=== PATIENT | female | born 1990 | race Caucasian/White ===

== ENCOUNTER 2016-08-02 20:22 | Emergency (ER) | payer OTHER ==
[~2016-08-02 20:22] MED LIST: ACETAMINOPHEN PO; ALBUTEROL17 GM INH; ALLEGRA PO; ALLEGRA180 MG PO; ALLERGY MED; ALPRAZOLAM PO; AMOXICILLIN PO; AMOXICILLIN875 MG PO; ANXIETY MED; ASPIR-TRIN325 MG PO; ASPIRIN81 M1 PO; ASPIRIN81 MG PO; AUGMENTIN PO; AZURETTE 28 DA1 EACH PO; BACTRIM DS TABL1 TA1 PO; BACTRIM DS TABL1 TA2 PO; BACTRIM DS TABL1 TAB PO; BIRTH CONTROL PILL PO; CHEWABLE ASPIRI81 MG PO; CIPRO PO; CIPRO250 M1 PO; CIPRO250 MG PO; CLARITIN PO; CLARITIN10 M1 PO; CLARITIN10 M2 PO; CLONIDINE; CLONIDINE HCL0.1 MG PO; DESYREL100 MG PO; DESYREL50 MG DOB; DIFLUCAN PO; DIFLUCAN100 MG PO; DITROPAN XL5 M1 PO; DOCUSATE SODIU100 MG PO; EFFEXOR PO; FLAGYL PO; FLEXERIL PO; FLONASE 0.05% N16 G1; FLONASE NASAL SPRAY; FOLIC ACID; FONDAPARIN2.5 MG/0.5 SQ; HYDROCODON-ACE1 EAC7 PO; HYOMAX-SL0.125 MG SL; IMITREX50 MG PO; KEFLEX500 M2 PO; KLONOPIN PO; KLONOPIN1 MG; KLONOPIN1 MG PO; KLONOPIN2 MG PO; LORTAB 7.5-5001 TAB PO; LYRICA; MACROBID100 M1 PO; MACROBID100 MG DOB; MACROBID100 MG PO; MEDROL DOSE PAK PO; MELATONIN; METRONIDAZOLE PO; MIRALAX17 G2 PO; MIRTAZAPINE30 MG PO; MORGIDOX100 MG PO; NEURONTIN300 MG PO; NILSTAT PO; NO MEDICATIONS; NORCO1 TAB 10/3; NORFLEX100 M1 DOB; ORUDIS75 M1 PO; PEN-VEE K PO; PEPCID AC20 M2 PO; PHENERGAN VC W120 M1 PO; PHENERGAN25 M1 PO; PHENERGAN25 MG PO; PRENATAL MULTI1 EACH PO; PRENATAL MULTIV1 TA1 PO; PRENATAL1 TA1 PO; PRILOSEC20 MG PO; PROAIR HFA8.5 GM INH; PROZAC PO; PYRIDIUM PO; PYRIDIUM100 MG PO; REQUIP4 MG PO; RISPERDAL0.5 M2 PO; SUDAFED PO; SYMBICORT INH; TEMAZEPAM7.5 MG PO; ULTRAM PO; VENLAFAXINE HCL75 MG PO; VESICARE PO; VISTARIL PO; VOLTAREN50 MG PO; VOLTAREN75 MG PO; WELLBUTRIN; XANAX1 MG PO; XANAX2 MG PO; ZANAFLEX4 M1 PO; ZITHROMAX PO; ZOFRAN ODT4 MG PO; ZYRTEC10 M2 PO; [UNRECOGNIZED DRUG - REMARK]
[2016-08-02] MEDS ORDERED: DULERA 100 MCG/13 GM (20:29)
[2016-08-02] MEDS ORDERED: PRISTIQ50 MG (20:30)
[2016-08-02 20:46] LABS: URINE SOURCE CLEAN CATCH
[2016-08-02 20:49] LABS: URINE APPEARANCE CLEAR; URINE BILIRUBIN NEG (NEG); URINE BLOOD 2+ (NEG); URINE COLOR YELLOW; URINE GLUCOSE NEG (NORM); URINE KETONE NEG (NEG); URINE LEUKOCYTE ESTERASE NEG (NEG); URINE NITRATE NEG (NEG); URINE PROTEIN NEG (NEG); URINE SPECIFIC GRAVITY <=1.005 (1.003-1.035); URINE UROBILINOGEN 0.2 MG/DL (NORM)
[2016-08-02 20:55] LABS: CULTURE INDICATED? NO; MICRO INDICATED? YES; URINE BACTERIA NEG (NEG); URINE SQUAMOUS EPITHELIAL CELL OCCAS /[HPF]; URINE WBC 0-2 /[HPF] (0-5)
== END 2016-08-02 21:34 | disposition home or self-care (01) ==
LOC: SED 20:22
PROVIDERS: Emergency Medicine
DX: N30.90 Cystitis, unspecified without hematuria (principal); F41.9 Anxiety disorder, unspecified; J44.9 Chronic obstructive pulmonary disease, unspecified; F17.200 Nicotine dependence, unspecified, uncomplicated; D21.9 Benign neoplasm of connective and other soft tissue, unspecified; Z79.899 Other long term (current) drug therapy
CPT/HCPCS: 81003; 84703; 99283